=== PATIENT | male | born 1960 | race Caucasian/White ===

== ENCOUNTER 2024-01-16 10:22 | Emergency (ER) | payer BC, SELFPAY ==
[2024-01-16] VITALS (28 sets, daily range): BP systolic 136–159; BP diastolic 84–95; PULSE 86–99; RESP 14–25; TEMP 37.1; O2SAT 92–99
--- NOTE | 2024-01-16 10:37 | ED.GENADUL_ITS ---
Discharge Plan Disposition Patient Disposition: Home Condition: Stable Discharge Details Clinical Impression: Allergic reaction, Swelling of upper lip Primary Care Provider: Unknown,Unknown ED Provider: Deanne Herbert Home Meds and New Rx's Prescriptions: New prednisone 20 mg tablet 60 mg PO DAILY 5 Days Qty: 15 0RF epinephrine 0.3 mg/0.3 mL auto-injector 0.3 mg IM Q4H PRN (Reason: anaphylaxis) Qty: 2 0RF Rx Instructions: Inject 7.3 mL into your thigh once every 4 hours as needed for increased rash, trouble breathing, facial swelling Continued amlodipine 5 mg tablet Patient Comments: TAKE 1 TABLET BY MOUTH EVERY DAY hydrochlorothiazide 12.5 mg capsule Patient Comments: TAKE 1 CAPSULE BY MOUTH EVERY DAY Held lisinopril 40 mg tablet Hold Instructions: Resume on 01/22/24. After Confirming with PCP Patient Comments: TAKE 1 TABLET BY MOUTH EVERY DAY Discharge Instructions Instructions: Angioedema caused by ARABELLA inhibitor medicines, Allergic Reaction ED Additional Instructions: At this time it appears you are having allergic reaction, however please confirm this with your primary care provider regarding your lisinopril use. Take the prednisone 3 tablets daily for the next 5 days, continue to take Benadryl or Zyrtec or similar 1 or 2 tablets every 6-8 hours as directed which you can get [id number]. Use the epinephrine pen as prescribed if needed for any worsening facial swelling or trouble breathing. Follow up with primary care provider in 3-5 days. Return to ED sooner if any worsening or concerns. Discharge Data Discharge Date/Time-TO BE ENTERED AT DEPARTURE: 01/16/24 13:47 HPI General Mode of arrival: ambulatory . Date/Time Provider Initiated Documentation: 01/16/24 10:33 . Limitations to Documentation: no limitations . Information obtained by: patient, family, RN notes reviewed and old records reviewed . HPI Narrative: 63-year-old male presents to the ER with a chief complaint of rash urticaria which began on his trunk, back now is extended to his arms, buttocks and legs. He presents with his upper lip swollen. He has no tongue swelling, posterior oropharynx is not swollen uvula is midline and does not appear to be swollen at this time. He has been taking Benadryl at home. This began a few days ago. He did take 125 mg Benadryl p.o. prior to arrival. He has no known drug allergies. Does have a past medical history of hypertension. Does take hydrochlorothiazide, lisinopril, and amlodipine. Denies any other medications. No known source of allergy. He is alert, oriented lungs are clear to auscultation no wheezing. He presents with his family. Related Data Home Medications Medication Instructions Recorded Confirmed amlodipine 5 mg tablet mg 01/16/24 epinephrine 0.3 mg/0.3 mL 0.3 mg (0.3 mL) IM Q4H PRN 01/16/24 injection, auto-injector anaphylaxis #2 ea hydrochlorothiazide 12.5 mg capsule mg 01/16/24 lisinopril 40 mg tablet mg 01/16/24 prednisone 20 mg tablet 60 mg (3 x 20 mg) PO DAILY 5 days 01/16/24 #15 tabs Previous Rx's Medication Instructions Recorded epinephrine 0.3 mg/0.3 mL 0.3 mg (0.3 mL) IM Q4H PRN 01/16/24 injection, auto-injector anaphylaxis #2 ea prednisone 20 mg tablet 60 mg (3 x 20 mg) PO DAILY 5 days 01/16/24 #15 tabs General Stated Complaint: GenMedical CHA: 3 Review of Systems All systems reviewed & are unremarkable except as noted in HPI and below ENT Ears, Nose, Mouth, and Throat: Denies dysphagia (Denies), Denies hoarseness, Reports lip swelling and Denies nasal discharge Cardiovascular Cardiovascular: Denies chest pain and Denies dyspnea Respiratory Respiratory: Denies cough, Denies dyspnea, Denies stridor and Denies wheezing Gastrointestinal Gastrointestinal: Denies dysphagia (Denies) Integumentary/Breasts Skin/Breast: Reports as per HPI, Reports pruritus and Reports rash Allergic/Immunologic Allergic/Immunologic: Reports lip swelling and Denies wheezing Exam Narrative Exam Narrative: Constitutional: Alert and oriented x3. Appears stated age. Normal body habitus. Head: Normocephalic, no trauma. Eyes: Pupils PERRL, Red reflex noted, EOM's intact. Eyelids symmetrical without lesions, discharge, or swelling. ENT: Bilateral TM's WNL, External ear normal to inspection, no mastoid TTP, swelling, or erythema, Nasal turbinates WNL, no nasal discharge. Normal dentition, Posterior pharynx WNL, no exudate. Chest: RRR, Normal S1, S2, distal pulses intact. Resp: Lungs clear to auscultation bilaterally, no wheezes, rales, or rhonchi. Abdomen: Soft, non-distended, Normoactive bowel sounds all 4 quads. Musculoskeletal: Normal gait, Moves all 4 extremities without difficulty. Skin: Generalized rash or urticaria noted to his trunk, bilateral upper extremities, upper lip is swollen. Neurologic: Cranial nerves II-XII intact. Alert and oriented x 3. Motor: No deficits noted. Sensory: Intact bilaterally all 4 extremities. Hematologic/Lymphatic: No ecchymosis, no lymphadenopathy. Course Vital Signs Vital signs: Vital Signs Temperature 37.1 C 01/16/24 10:24 Pulse 99 H 01/16/24 10:24 Respiratory Rate 18 01/16/24 10:24 Blood Pressure 159/89 H 01/16/24 10:24 Pulse Oximetry 99 01/16/24 10:24 Temperature 37.1 C 01/16/24 10:24 Pulse 99 H 01/16/24 10:24 Respiratory Rate 18 01/16/24 10:24 Blood Pressure 159/89 H 01/16/24 10:24 Pulse Oximetry 99 01/16/24 10:24 Oxygen Delivery Method Room Air 01/16/24 10:24 Oxygen Flow Rate 0 01/16/24 10:24 Medical Decision Making 63-year-old male presents to the ER with a chief complaint of rash urticaria which began on his trunk, back now is extended to his arms, buttocks and legs. He presents with his upper lip swollen. He has no tongue swelling, posterior oropharynx is not swollen uvula is midline and does not appear to be swollen at this time. He has been taking Benadryl at home. This began a few days ago. He did take 125 mg Benadryl p.o. prior to arrival. He has no known drug allergies. Does have a past medical history of hypertension. Does take hydrochlorothiazide, lisinopril, and amlodipine. Denies any other medications. No known source of allergy. He is alert, oriented lungs are clear to auscultation no wheezing. He presents with his family. Medical workup ordered initially QTc IV, 125 Solu-Medrol 20 mg of famotidine. Will consider additional antihistamine if needed and epi will reevaluate in approximately 15 minutes. Differential diagnosis includes but not limited to angioedema however patient has been on lisinopril for some time, does not appear to have tongue swelling or posterior oropharynx swelling at this time., Allergic dermatitis, poison tucker, poison oak dermatitis. Labs are largely unremarkable he does have elevated AST and ALT AST 112 ALT 114, he reports that he was a former drinker, he has decreased his drinking is significantly recently. Sodium slightly low at 135, I did request Dr. Thomas's presents just to double check patient does still have some upper lip swelling. Plan to give prednisone taper for 5 days 60 mg a day. With strict return instructions and close follow-up with PCP. Patient verbalized understanding is in agreement with the plan he is hemodynamically stable alert and oriented speaking in full sentences. This text was generated using [employer] dictation system, please disregard any oddities of phrase or misspellings. Quality:SDOH Health Related Social Needs: No Data to Display PFSH All Active Problems (Updated 01/16/24 @ 13:35 by Deanne Herbert NP) Swelling of upper lip (Acute) Allergic reaction (Acute) Social History Smoking risk assessment performed?: No
[2024-01-16] MEDS: FAMOTIDINE 20 MG in Normal Saline 100 ML 400 MG IVPB (11:00)
[2024-01-16] MEDS: methylPREDNISolone SUCC 125 MG VIAL IVP (11:00)
[2024-01-16] MEDS: Normal Saline 1,000 ML 1000 ML IV (11:01)
[2024-01-16 11:03] LABS: Abs Immature Grans 0.02 10^3/uL (0.0-0.06); Absolute Basophil Count 0.01 10^3/uL (0.0-0.2); Absolute Eosinophil Count 0.03 10^3/uL (0.0-0.7); Absolute Lymphocyte Count 1.68 10^3/uL (1.2-3.4); Absolute Monocyte Count 0.49 10^3/uL (0.1-0.8); Absolute Neutrophil Count 4.72 10^3/uL (1.2-6.7); Basophils % 0.1 %; Eosinophils % 0.4 %; HCT 44.9 % (40.0-50.0); HGB 15.2 g/dL (13.5-17.5); Immature Grans % 0.3 %; Lymphocytes % 24.2 %; MCH 31.9 pg (27.0-33.0); MCHC 33.9 % (32.0-36.0); MCV 94 fL (80-95); MPV 10.7 fL (8.0-11.0); Monocytes % 7.1 %; Neutrophils % 67.9 %; Platelet Count 198 10^3/uL (130-400); RBC 4.76 10^6/uL (4.36-5.78); RDW 15.3 % (11.8-14.1); RDW-SD 53.4 fL; WBC 6.95 10^3/uL (4.4-10.8)
[2024-01-16 11:16] LABS: PTT Activated 26.7 sec (23.6-32.8); Prothrombin Time 10.2 sec (9.1-11.1)
[2024-01-16 11:18] LABS: ALT 114 U/L (16-63); AST 112 U/L (15-37); Alkaline Phosphatase 74 U/L (46-116); Anion Gap 12.3 mmol/L (3-11); BUN 11 mg/dL (7-18); Bilirubin, Total 0.8 mg/dL (0.2-1.0); CO2 24.7 mmol/L (21.0-32.0); CREATININE 0.9 mg/dL (0.70-1.30); Calcium 9.8 mg/dL (8.5-10.1); Chloride 98 mmol/L (98-107); Estimated GFR 95.37 (mL/min/1.73m2); Glucose 95 mg/dL (74-106); Potassium 3.8 mmol/L (3.5-5.1); Sodium 135 mmol/L (136-145); Total Protein 8.1 g/dL (6.4-8.2)
== END 2024-01-16 13:47 | disposition home or self-care (01) ==
LOC: ER 15:08
PROVIDERS: Emergency Provider Registered Nurse Emergency
DX: R22.0 Localized swelling, mass and lump, head (principal); L50.9 Urticaria, unspecified; I10 Essential (primary) hypertension
CPT/HCPCS: 80053; 96365; 99284; 85025; 85610; 85730; 99283; J2919